=== PATIENT | male | born 2000 | race Caucasian/White ===

== ENCOUNTER → 2021-03-06 | Outpatient (CLI) | payer OTHER ==
[2021-03-06 13:28] LABS: APPEARANCE, URINE CLEAR (CLEAR); BACTERIA, URINE AUTO NEGATIVE (NEGATIVE); BILIRUBIN, URINE AUTO NEGATIVE (NEGATIVE); BLOOD, URINE BLOOD NEGATIVE (NEGATIVE); COLOR, URINE YELLOW (YELLOW); GLUCOSE, URINE (UA) AUTO NEGATIVE (NEGATIVE); HEMOGLOBIN 16.1 g/dl (13.5-17.5); KETONE, URINE AUTO NEGATIVE (NEGATIVE); LEUKOCYTE ESTERASE, URINE AUTO NEGATIVE (NEGATIVE); MEAN CORPUSCULAR HEMOGLOBIN 29.7 pg (27.0-33.0); MEAN CORPUSCULAR HGB CONC 34.3 g/dl (32.0-36.5); MEAN CORPUSCULAR VOLUME 86.6 fl (80.0-96.0); NITRITE, URINE AUTO NEGATIVE (NEGATIVE); PLATELET COUNT, AUTOMATED 237 10^3/uL (150-450); PROTEIN, URINE AUTO NEGATIVE (NEGATIVE); RBC, URINE AUTO 0 /HPF (0-3); RED BLOOD COUNT 5.43 10^6/uL (4.30-6.10); SQUAMOUS EPITHELIAL CELL UR AU 0 /HPF (0-6); UROBILINOGEN, URINE AUTO 0.2 mg/dL (0.0-2.0); WBC, URINE AUTO 0 /HPF (0-3); WHITE BLOOD COUNT 7.5 10^3/uL (4.0-10.0)
[2021-03-06 15:11] LABS: ALBUMIN 4.5 GM/DL (3.2-5.2); ALT/SGPT 89 U/L (12-78); BILIRUBIN,TOTAL 0.7 MG/DL (0.2-1.0); BLOOD UREA NITROGEN 16 MG/DL (7-18); CALCIUM LEVEL 8.8 MG/DL (8.5-10.1); CARBON DIOXIDE LEVEL 27 MEQ/L (21-32); CHLORIDE LEVEL 102 MEQ/L (98-107); GLUCOSE, FASTING 87 MG/DL (70-100); HEPATITIS B SURFACE ANTIBODY NEGATIVE (POSITIVE); HEPATITIS B SURFACE ANTIGEN NEGATIVE (NEGATIVE); HEPATITIS C VIRUS ABY INDEX < 0.0 INDEX (<0.8); HIV 1&2 SCREEN CENTAUR NEGATIVE (NEGATIVE); SODIUM LEVEL 137 MEQ/L (136-145); TOTAL PROTEIN 7.9 GM/DL (6.4-8.2)
[2021-03-07 07:05] LABS: BASO % 0.4 % (0.0-1.0); EOS # 0.2 10^3/uL (0.0-0.5); EOS % 2.6 % (0.0-3.0); LYMPH # 2.6 10^3/uL (1.5-5.0); MONO # 0.7 10^3/uL (0.0-0.8); MONO % 9.2 % (2.0-8.0); NEUTROPHILS # 4.3 10^3/uL (1.5-8.5); NEUTROPHILS % 54.5 % (36.0-66.0)
[2021-03-07 07:07] LABS: PLATELET ESTIMATE NORMAL (NORMAL)
[2021-03-08 05:07] LABS: HEPATITIS B CORE ANTIBODY IGG Negative (Negative)
== END ==
LOC: M LAB 12:19
PROVIDERS: ATTEND Nurse Practitioner Family
DX: F19.90 Other psychoactive substance use, unspecified, uncomplicated (principal)

== ENCOUNTER → 2021-03-14 | Outpatient (CLI) | payer OTHER ==
[2021-03-14 10:03] LABS: ALBUMIN 3.9 GM/DL (3.2-5.2); BILIRUBIN,DIRECT 0.1 MG/DL (0.0-0.2); BILIRUBIN,TOTAL 0.4 MG/DL (0.2-1.0); CHOLESTEROL RISK RATIO 4.461 (<5); TOTAL PROTEIN 7.2 GM/DL (6.4-8.2)
== END ==
LOC: M LAB 08:12
PROVIDERS: ATTEND Nurse Practitioner Family
DX: R94.5 Abnormal results of liver function studies (principal)

== ENCOUNTER → 2021-11-01 | Outpatient (CLI) | payer MEDICAID ==
[~2021-11-01] MED LIST: BUSP1TAB PO; EFFE150C2 PO; ERGO500029 PO; FLON1SPR; HYDR1CAP25 PO; TRIC145T22 PO; VENL37TA PO
== END ==
LOC: M PLALAB 14:50
PROVIDERS: ATTEND Emergency Medicine
DX: F32.A Depression, unspecified (principal)

== ENCOUNTER → 2021-11-18 | Outpatient (CLI) | payer MEDICAID | LOC: M LABSMTC 09:58 | PROVIDERS: ATTEND Anesthesiology | DX: Z20.828 Contact with and (suspected) exposure to other viral communicable diseases (principal); Z11.59 Encounter for screening for other viral diseases ==

== ENCOUNTER → 2021-11-21 | Outpatient (CLI) | payer MEDICAID ==
[2021-11-21 14:48] LABS: ALBUMIN 4.4 GM/DL (3.2-5.2); BILIRUBIN,DIRECT 0.1 MG/DL (0.0-0.2); BILIRUBIN,TOTAL 0.6 MG/DL (0.2-1.0); CHOLESTEROL RISK RATIO 4.621 (<5); TOTAL PROTEIN 7.3 GM/DL (6.4-8.2)
== END ==
LOC: M PLALAB 09:44
PROVIDERS: ATTEND Emergency Medicine
DX: E78.5 Hyperlipidemia, unspecified (principal)

== ENCOUNTER → 2021-11-21 | Outpatient (CLI) | payer MEDICAID | LOC: M RAD 15:42 | PROVIDERS: ATTEND Emergency Medicine | DX: M54.2 Cervicalgia (principal); R20.2 Paresthesia of skin ==

== ENCOUNTER 2021-11-22 07:24 | Day surgery (SDC) | payer MEDICAID ==
[~2021-11-22] VITALS: Ht 182.9 cm; Wt 99.3 kg
[~2021-11-22 07:24] MED LIST changes: +LIDOCAINE 2% 100MG/5ML SDV (FOR ANES.) As Ordered ONE; +NS 1,000 ML IV ONE; +propofoL 200 MG/20 ML VIAL As Ordered ONE
[2021-11-22] MEDS ORDERED: fentaNYL 100 MCG/2 ML INJECTION As Ordered ONE (08:25)
[2021-11-22] MEDS ORDERED: propofoL 200 MG/20 ML VIAL As Ordered ONE (08:46)
[2021-11-22 09:28] VITALS: BP 126/58
== END 2021-11-22 09:20 | disposition home or self-care (01) ==
LOC: M OPP 07:24
PROVIDERS: ATTEND Internal Medicine Gastroenterology
DX: R10.32 Left lower quadrant pain (principal); R19.4 Change in bowel habit; K22.10 Ulcer of esophagus without bleeding; R12 Heartburn; R14.0 Abdominal distension (gaseous); Z79.899 Other long term (current) drug therapy; Z87.891 Personal history of nicotine dependence
CPT/HCPCS: 43239; 45380; 88305; J3010

== ENCOUNTER → 2022-03-08 | Outpatient (CLI) | payer MEDICAID ==
[~2022-03-08] MED LIST changes: -LIDOCAINE 2% 100MG/5ML SDV (FOR ANES.) As Ordered ONE; -NS 1,000 ML IV ONE; -propofoL 200 MG/20 ML VIAL As Ordered ONE
[2022-03-08 15:25] LABS: HEMOGLOBIN 13.6 g/dl (13.5-17.5); MEAN CORPUSCULAR HEMOGLOBIN 29.9 pg (27.0-33.0); MEAN CORPUSCULAR HGB CONC 34.9 g/dl (32.0-36.5); MEAN CORPUSCULAR VOLUME 85.7 fl (80.0-96.0); PLATELET COUNT, AUTOMATED 267 10^3/uL (150-450); RED BLOOD COUNT 4.55 10^6/uL (4.30-6.10); WHITE BLOOD COUNT 6.4 10^3/uL (4.0-10.0)
[2022-03-08 16:26] LABS: ALBUMIN 4.6 GM/DL (3.2-5.2); ALT/SGPT 69 U/L (12-78); BILIRUBIN,DIRECT 0.1 MG/DL (0.0-0.2); BILIRUBIN,TOTAL 0.6 MG/DL (0.2-1.0); BLOOD UREA NITROGEN 14 MG/DL (7-18); CALCIUM LEVEL 9.6 MG/DL (8.5-10.1); CARBON DIOXIDE LEVEL 33 MEQ/L (21-32); CHLORIDE LEVEL 105 MEQ/L (98-107); CREATININE FOR GFR 1.31 MG/DL (0.70-1.30); GLOMERULAR FILTRATION RATE > 60.0 (>60); GLUCOSE, FASTING 81 MG/DL (70-100); POTASSIUM SERUM 3.8 MEQ/L (3.5-5.1); SODIUM LEVEL 141 MEQ/L (136-145); TOTAL PROTEIN 7.2 GM/DL (6.4-8.2)
== END ==
LOC: M RAD 14:09
PROVIDERS: ATTEND Emergency Medicine
DX: M25.511 Pain in right shoulder (principal)

== ENCOUNTER 2022-04-28 08:44 | Emergency (ER) | payer MEDICAID ==
[~2022-04-28] VITALS: Ht 195.6 cm; Wt 104.0 kg
[2022-04-28] MEDS ORDERED: ACET325C5 PO (08:53)
[2022-04-28] MEDS ORDERED: IBUP200C25 PO (08:53)
[2022-04-28] MEDS ORDERED: DOXYCYCLINE HYCLATE 100MG TABLET PO ONE (13:00)
[2022-04-28] MEDS ORDERED: LIDOCAINE 1% SDV 5ML VIAL DILUENT ONE (13:00)
[2022-04-28] MEDS ORDERED: cefTRIAXone 500MG VIAL (J0696 PER 250MG) IM ONE (13:00)
[2022-04-28] MEDS ORDERED: DOXY-443 PO (13:02)
[2022-04-28 13:14] VITALS: BP 139/79
[2022-04-28 13:41] LABS: GC DNA AMPLIFICATION NEGATIVE (NEGATIVE)
== END 2022-04-28 13:20 | disposition home or self-care (01) ==
LOC: M ED 08:44
DX: N34.2 Other urethritis (principal); F17.200 Nicotine dependence, unspecified, uncomplicated; Z79.899 Other long term (current) drug therapy
CPT/HCPCS: 87661; 87810; 87850; 96372; 99283; J0696

== ENCOUNTER 2022-09-24 13:48 | Emergency (ER) | payer MEDICAID ==
[~2022-09-24] VITALS: Ht 182.9 cm; Wt 111.4 kg
[~2022-09-24 13:48] MED LIST changes: +ACET325C5 PO; +DOXY-443 PO; +IBUP200C25 PO
[2022-09-24 13:49] VITALS: BP 150/70
== END 2022-09-24 19:20 | disposition left against medical advice (07) ==
LOC: M ED 13:48
DX: Z53.21 Procedure and treatment not carried out due to patient leaving prior to being seen by health care provider (principal)

== ENCOUNTER 2023-12-16 18:03 | Emergency (ER) | payer MEDICAID ==
[~2023-12-16] VITALS: Ht 182.9 cm; Wt 100.7 kg
[~2023-12-16 18:03] MED LIST changes: -EFFE150C2 PO; +EFFE150C3 PO
[2023-12-16 18:04] VITALS: BP 166/85; TEMP 97.7; O2SAT 100
[2023-12-16] MEDS: ONDANSETRON 4MG ORAL DISINTEGRATING TAB PO ONE (19:08)
[2023-12-16 19:17] LABS: RSV AMPLIFICATION NEGATIVE (NEGATIVE)
[2023-12-16] MEDS ORDERED: ONDA4TAB6 PO (19:36)
== END 2023-12-16 19:48 | disposition home or self-care (01) ==
LOC: M ED 18:03
DX: R11.2 Nausea with vomiting, unspecified (principal); R19.7 Diarrhea, unspecified; F17.200 Nicotine dependence, unspecified, uncomplicated; Z79.83 Long term (current) use of bisphosphonates; Z79.899 Other long term (current) drug therapy